=== PATIENT | male | born 1930 | race Two or more races ===

== ENCOUNTER → 2016-09-06 | Outpatient (CLI) | payer MEDICARE, BC ==
--- NOTE | 2016-09-06 14:53 | RADRPT ---
PROCEDURE: XR Knees. CLINICAL INDICATION: Bilateral knee pain. TECHNIQUE: Total of six views. Frontal, oblique, and lateral views of both knees. COMPARISON: No prior study is available for comparison. FINDINGS: There is no fracture or dislocation. Vascular calcifications are present consistent with atherosclerosis. 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 There is no fracture, dis location, or loosening. There is no lytic or blastic lesion. Multiple surgical clips are present in the soft tissues posteriorly with right more than left. IMPRESSION: 1. Satisfactory postoperative appearance of both knees. 2. Atherosclerosis. RPTAT: QQ .Kristopher Taveras MD, MD Date Time Electronically viewed and signed by .Kristopher Taveras MD, MD on 09/06/2016 14:53 .R/
--- NOTE | 2016-09-06 14:54 | RADRPT ---
PROCEDURE: XR Left hip and pelvis. CLINICAL INDICATION: Left hip pain and pelvic pain. TECHNIQUE: 3 views. Frontal pelvis. Frontal and lateral left hip. COMPARISON: None. FINDINGS: There is no fracture or dislocation. The soft tissues are normal. There are bilateral total hip arthroplasties which appears satisfactory. There is no fracture, disl ocation, or loosening. There is no lytic or blastic lesion. Surgical clips are present in the right inguinal region. Vascular calcifications are present consis tent with atherosclerosis. IMPRESSION: 1. Satisfactory postoperative appearance of both hips. 2. Prior right inguinal surgery. 3. Atherosclerosis. RPTAT: QQ .Kristopher Taveras MD, MD Date Time Electronically viewed and signed by .Kristopher Taveras MD, on 09/06/2016 14:54 .R/
== END | disposition home or self-care (01) ==
LOC: HKI 13:46
PROVIDERS: ATTEND Orthopaedic Surgery
DX: M25.561 Pain in right knee (principal); M25.562 Pain in left knee; M25.551 Pain in right hip; M25.552 Pain in left hip; Z96.653 Presence of artificial knee joint, bilateral; Z96.643 Presence of artificial hip joint, bilateral; T84.84XA Pain due to internal orthopedic prosthetic devices, implants and grafts, initial encounter
CPT/HCPCS: 73502; 73562; G0463

== ENCOUNTER → 2016-09-15 | Outpatient (CLI) | payer MEDICARE, BC ==
--- NOTE | 2016-09-15 17:39 | RADRPT ---
PROCEDURE: Three-phase bone scan study CLINICAL INDICATION: 85 -year-old patient with bilateral knee and hip replacements, complaining of left hip and knee pain. TECHNIQUE: Following the intravenous injection of 22.6 mCi of Tc-99m MDP, a three-phase bone scan study of the knees bilaterally was obtained. In addition, blood pooling images and delayed spot imag es of the pelvis and both hips were obtained. COMPARISON: No prior bone scan studies. X-ray of the knees and hips bilaterally dated September 06. FINDINGS: Blood flow phase of the study demonstrates symmetrical distribution of activity in the knees bilater ally. Blood pooling images of the knees and hips bilaterally reveal symmetrical distribution of uptake in both knees and hips. Delayed images of both knees and hips demonstrate evidence of a bilateral knees and hip replacement . Very mild symmetric increase in tracer activity is noted surrounding the knees and hips prosthesi s as bilaterally. No definite abnormal asymmetric areas of increased activity are seen in the obtained images of the h ips and knees. IMPRESSION: 1. Evidence of bilateral knees and hips replacements with likely postsurgical changes. 2. No other abnormal areas of increased uptake in the obtained limited views . RPTAT: HH .Gilda Rahman MD, Date Time Electronically viewed and signed by .Gilda Rahman MD, on 09/15/2016 17:39 .L/
== END | disposition home or self-care (01) ==
LOC: NUC 09:40
PROVIDERS: ATTEND Orthopaedic Surgery
DX: T84.84XA Pain due to internal orthopedic prosthetic devices, implants and grafts, initial encounter (principal); Y83.8 Other surgical procedures as the cause of abnormal reaction of the patient, or of later complication, without mention of misadventure at the time of the procedure; M25.552 Pain in left hip; M25.551 Pain in right hip; M25.562 Pain in left knee; M25.561 Pain in right knee; Z96.643 Presence of artificial hip joint, bilateral
CPT/HCPCS: 78315; A9503